=== PATIENT | male | born 1960 | race Caucasian/White ===

== ENCOUNTER 2016-08-22 17:41 | Emergency (ER) | payer MEDICARE, OTHER ==
[~2016-08-22 17:41] MED LIST: ASPIRIN81 MG PO; ATORVASTATIN CA20 MG PO; DUONEB 2.5-0.5MG3 ML INH; FENOFIBRATE145 MG PO; HYDROCODON-ACE1 EAC4 PO; LEVOFLOXACIN500 MG PO; MEDROL4 M1 PO; NAPROXEN500 MG PO; OMEPRAZOLE20 M1 PO; PENTOXIFYLLINE400 MG PO; SERTRALINE HCL50 MG PO; ST. JOSEPH ASPI81 MG PO
== END 2016-08-22 19:39 | disposition other institution (70) ==
LOC: ER 17:41
DX: F41.1 Generalized anxiety disorder (principal); J44.9 Chronic obstructive pulmonary disease, unspecified; Z85.528 Personal history of other malignant neoplasm of kidney; Z90.5 Acquired absence of kidney; Z98.890 Other specified postprocedural states; Z79.899 Other long term (current) drug therapy
CPT/HCPCS: 99282